=== PATIENT | male | born 1955 | race Caucasian/White ===

== ENCOUNTER → 2016-12-16 | Outpatient (CLI) | payer BC ==
--- NOTE | 2016-12-16 09:29 | MR ---
EXAMINATION TYPE: MR shoulder LT wo con DATE OF EXAM: 12/16/2016 COMPARISON: NONE HISTORY: Lt shoulder pain TECHNIQUE: Multiplanar, multisequence imaging of the left shoulder is performed without contrast. FINDINGS: Rotator Cuff: There is an 8 mm through thickness tear involving the anterior fibers of the supraspina tus tendon. No significant retraction. There is fluid in the subacromial subdeltoid bursa. Acromioclavicular Joint: Hypertrophic change of the AC joint with impingement upon the supraspinatus muscle and tendon noted. Glenohumeral Joint: No sizable joint effusion. Glenohumeral ligaments intact. Mild narrowing of the j oint space noted. Labrum: The labrum appears grossly intact given limitation of non-arthrogram study. Biceps Tendon: There is normal location the bicipital tendon within the bicipital groove. Increased f luid surrounding the tendon noted. Biceps anchor and intracapsular portion of the tendon are normal. Bone marrow signal: No focal abnormal marrow signal is appreciated. IMPRESSION: 1. 8 mm through thickness tear anterior fibers supraspinatus tendon with no significant retraction. 2. Impingement secondary to hypertrophic change of the AC joint. #3 bicipital tendinosis.
== END ==
LOC: RADMRIMAIN 06:53
PROVIDERS: ATTEND Orthopaedic Surgery
DX: M75.102 Unspecified rotator cuff tear or rupture of left shoulder, not specified as traumatic (principal)

== ENCOUNTER → 2017-04-25 | Outpatient (CLI) | payer BC ==
[2017-04-25 13:35] LABS: Basophils # (A) 0.1 k/uL (0-0.2); Basophils % (A) 1 %; Eosinophils # (A) 0.1 k/uL (0-0.7); Eosinophils % (A) 2 %; HCT 46.5 % (39.0-53.0); HGB 15.2 gm/dL (13.0-17.5); Lymphocytes # (A) 1.7 k/uL (1.0-4.8); Lymphocytes % (A) 27 %; MCH 29.2 pg (25.0-35.0); MCHC 32.6 g/dL (31.0-37.0); MCV 89.6 fL (80.0-100.0); Mean Platelet Volume 7.6; Monocytes # (A) 0.4 k/uL (0-1.0); Monocytes % (A) 7 %; Neutrophils # (A) 3.8 k/uL (1.3-7.7); Neutrophils % (A) 60 %; Platelet Count 261 k/uL (150-450); RBC 5.19 m/uL (4.30-5.90); RDW 13.3 % (11.5-15.5); WBC 6.3 k/uL (3.8-10.6)
[2017-04-25 13:41] LABS: Potassium 5.1 mmol/L (3.5-5.1)
== END | disposition home or self-care (01) ==
LOC: LABPAT 13:05
PROVIDERS: ATTEND Orthopaedic Surgery
DX: Z01.818 Encounter for other preprocedural examination (principal); Z01.812 Encounter for preprocedural laboratory examination; M75.42 Impingement syndrome of left shoulder
CPT/HCPCS: 36415; 80051; 85025; 93005

== ENCOUNTER 2017-05-03 06:02 | Day surgery (SDC) | payer BC ==
[2017-04-21 16:38] VITALS: BMI 28.8
--- NOTE | 2017-05-02 11:41 | HP ---
HISTORY AND PHYSICAL HISTORY: Rashel Tinoco is a 61-year-old patient seen with progressive left shoulder pain. After having treatment options discussed, he elected to proceed with left shoulder arthroscopy. Consent regarding the procedure was obtained. PAST MEDICAL HISTORY: Hypertension, anxiety. PAST SURGICAL HISTORY: Left knee arthroscopy. DAILY MEDICATIONS: Simvastatin, Xanax, Aleve. ALLERGIES: None reported. SOCIAL HISTORY: Patient denies current tobacco use. PHYSICAL EXAMINATION: Evaluation of the left shoulder, flexion is 150 degrees, abduction is 140 degrees, external rotation is 25 degrees with weakness. There is tenderness along the anterior lateral acromion, rotator cuff insertion site. Positive impingement sign, 90 degrees. Distal neurovascular exam intact. RADIOGRAPHS: Radiographs of the left shoulder revealed a type 2 anterior acromion, moderate acromioclavicular joint osteoarthritis and cystic changes of the greater tuberosity. An MRI left shoulder revealed rotator cuff tendon tear, impingement, and biceps tendinosis. IMPRESSION: Left shoulder impingement with rotator cuff tear and acromioclavicular joint osteoarthritis. PLAN: Left shoulder arthroscopy, subacromial decompression, possible arthroscopic rotator cuff repair, probable Roney procedure and debridement. MMODL / IJN: [id number] /
[~2017-05-03 06:02] MED LIST: ceFAZolin IN SWFI 2 GM/20 ML SYRINGE IVP ONE
[2017-05-03] MEDS ORDERED: HYDROmorphone 0.5 MG/0.5 ML SYRINGE IVP PRN (06:08)
[2017-05-03] MEDS ORDERED: LACTATED RINGERS 1,000 ML IV SCH (06:08)
[2017-05-03] MEDS ORDERED: DEXAMETHASONE SOD PHOSPHATE 10 MG/ML 1 ML VIAL IV ONE (06:08)
[2017-05-03] MEDS ORDERED: ONDANSETRON 4 MG/2 ML VIAL IVP ONE (06:08)
[2017-05-03] MEDS ORDERED: MIDAZOLAM 2 MG/2 ML VIAL IV PRN (06:08)
[2017-05-03] MEDS ORDERED: LIDOCAINE 1% 20 ML VIAL (10MG/ML) FOR IV START INTRADERMA ONE (06:42)
[2017-05-03] MEDS ORDERED: fentaNYL (PF) 50 MCG/ML 2 ML AMP IV ONE (07:08)
[2017-05-03] MEDS ORDERED: LIDOCAINE 1% INJ 10MG/ML (20 ML MDV) ONE (07:30)
[2017-05-03] MEDS ORDERED: MIDAZOLAM 2 MG/2 ML VIAL ONE (07:30)
[2017-05-03] MEDS ORDERED: PROPOFOL 10 MG/ML 20 ML VIAL IV ONE (07:30)
[2017-05-03] MEDS ORDERED: SUCCINYLCHOLINE CHLORIDE 100 MG/5 ML SYR IV ONE (07:30)
[2017-05-03] MEDS ORDERED: fentaNYL (PF) 50 MCG/ML 2 ML AMP ONE (07:30)
[2017-05-03] MEDS ORDERED: KETOROLAC 30 MG/ML 1 ML VIAL ONE (07:30)
--- NOTE | 2017-05-03 07:56 | P.ONQ ---
Anesthesiology Proc Note - PNB - Peripheral Nerve Block Performed Left Interscalene Single Time Out Performed: Yes Procedure Start Time: 07:09 Indication: Acute Post-Operative Pain, Analgesia Sedation Type: Sedate with meaningful contact maintained Preparation: Sterile Prep Position: Supine Catheter: None Needle Types: Other (see comment) (Malcom) Needle Size: 50mm (2") Needle Gauge: 21 Technique: Ultrasound Injectate: Other (see comment) (12.5 mL 2% lidocaine +12.5 mL 0.5% ropivacaine) Adjunct: Epinephrine (see comment for dilution ratio) (1:200,000) Blood Aspirated: No Pain Paresthesia on Injection Noted: No Resistance on Injection: Normal Events: Uneventful and Well Tolerated
[2017-05-03] MEDS ORDERED: LACTATED RINGERS 1,000 ML IV ONE (09:24)
[2017-05-03 09:36] VITALS: TEMP 97
--- NOTE | 2017-05-03 09:40 | P.OP ---
Date of Procedure: 05/03/17 Preoperative Diagnosis: Left shoulder impingement Postoperative Diagnosis: 1. Left shoulder rotator cuff tear 2. Left shoulder impingement 3. Left shoulder acromioclavicular joint osteoarthritis 4. Left shoulder partial long head biceps tendon tear 5. Left shoulder superficial anterior labral tear 6. 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 Left shoulder arthroscopic rotator cuff repair 2. Left shoulder arthroscopic subacromial decompression 3. Left shoulder arthroscopic Roney procedure 4. Left shoulder arthroscopic biceps tenotomy 5. Left shoulder arthroscopic debridement labral tear 6. Left shoulder arthroscopic chondroplasty glenoid Implants: 4-4.5mm peek anchors Anesthesia: GETA, regional (Interscalene block) Surgeon: Conrad Cummins Hops Farmworker #1: Zack Rosales Estimated Blood Loss (ml): 15 Pathology: none sent Condition: stable Disposition: PACU Indications for Procedure: 61-year-old patient seen with progressive left shoulder pain. We discussed treatment options and he elected to proceed with arthroscopy. Operative Findings: see description of procedure Description of Procedure: Patient underwent a shoulder block by department of anesthesia. The patient was then taken to the operative suite. The patient underwent a general anesthetic by the department of anesthesia. The patient was placed into a lateral position and secured. There was appropriate padding of the bony prominence. Left shoulder was then prepped and draped in normal sterile orthopedic fashion. We placed the extremity in 10 pounds of longitudinal traction. A posterior incision was now made for a posterior working portal site. The trocar and cannula were inserted into the glenohumeral joint. Arthroscopy was initiated. Spinal needle was now inserted anteriorly, to ascertain the anterior working portal site. An incision was now made in that area, a trocar was inserted followed by a probe. There was superficial tearing of the anterior labrum. There was an obvious rotator cuff tear visualized from the glenohumeral side. There was partial tearing long head biceps tendon with hyperemia. There were grade 1/2 chondromalacia changes of the superior portion of the glenoid with some osteochondral tears present. Grade 1 chondromalacia changes of the humeral head with no osteochondral tears. The remaining labrum was stable. I performed an arthroscopic biceps tenotomy. I debrided the superficial labral tear down to stable tissue. I performed a chondroplasty of the glenoid down to stable tissue. The residual osteochondral surface was stable. The residual labrum was stable. Instruments were now removed from glenohumeral joint. Utilizing the posterior working portal site, the trocar and cannula were inserted into the subacromial space. Arthroscopy initiated. I made an incision 2 fingerbreadths lateral to the acromion. I introduced my trocar followed by my [employer] ablator. I now began ablating thick subacromial bursal tissue, which exposed the undersurface of the anterior acromion. This was diminished subacromial space. There was a very prominent anterior acromion. A motorized bur was introduced and a subacromial decompression was performed. I also excised some osteophytes off the inferior aspect of the distal clavicle. The AC joint was visualized and noted to be fairly arthritic. Our motorized bur was introduced in the anterior portal site and a Roney procedure was performed without difficulty, decompressing the AC joint nicely. I turned my attention to the rotator cuff. There was a 2-2.5 cm tear along the distal supraspinatus tendon. I debrided the margins getting down to stable tendon tissue. I was able the pulled over the footprint. I abraded the footprint with a motorized bur. I created an equipment validation specialist portal site off the lateral acromion. I inserted 2 medial row anchors with 2 sutures each. I passed all 8 limbs of suture through good bites of rotator cuff tendon tissue. I passed one additional loop suture anteriorly. We now crisscrossed the sutures pulling the tendon over the probe footprint and then inserted 2 lateral anchors compressing the tendon along the footprint very nicely. The residual suture limbs were clipped. We had a good stable repair. Instruments now removed from the portal sites. All portal sites were approximated with nylon suture. Sterile dressings were applied followed by a shoulder immobilizer. Yves BARRON assisted with the procedure. The patient was awakened, transferred to a bed, and taken to recovery in stable condition.
[2017-05-03 10:00] VITALS: RESP 16
[2017-05-03 11:52] VITALS: BP 121/62; PULSE 69
== END 2017-05-03 12:20 | disposition home or self-care (01) ==
LOC: OR 06:02
PROVIDERS: ATTEND Orthopaedic Surgery
DX: M75.102 Unspecified rotator cuff tear or rupture of left shoulder, not specified as traumatic (principal); M75.42 Impingement syndrome of left shoulder; M19.012 Primary osteoarthritis, left shoulder; S46.112A Strain of muscle, fascia and tendon of long head of biceps, left arm, initial encounter; S43.402A Unspecified sprain of left shoulder joint, initial encounter; X58.XXXA Exposure to other specified factors, initial encounter; M94.212 Chondromalacia, left shoulder; M25.712 Osteophyte, left shoulder; I10 Essential (primary) hypertension; K21.9 Gastro-esophageal reflux disease without esophagitis; F41.9 Anxiety disorder, unspecified; Z79.1 Long term (current) use of non-steroidal anti-inflammatories (NSAID); Z79.899 Other long term (current) drug therapy; Z79.82 Long term (current) use of aspirin
CPT/HCPCS: 64415; 29826; 29827; 29824; C1894; C1713; J2250; J1100; J0690; J2405; J2001; J3010; J1885; J0330; J2704